=== PATIENT | male | born 1995 | race African-American/Black ===

== ENCOUNTER 2022-07-24 01:27 | Emergency (ER) | payer OTHER ==
[2022-07-24 01:46] VITALS: BP 104/69; PULSE 77; RESP 18; TEMP 98.2; BMI 23.3
[2022-07-24] MEDS ORDERED: KETOROLAC TROMETHAMINE 30 MG/1 ML VIAL IM ONE (02:15)
[2022-07-24] MEDS ORDERED: IBUPROFEN 400 MG TABLET (FP) PO ONE (02:17)
[2022-07-24] MEDS ORDERED: ACETAMINOPHEN 325 MG TABLET (FP) PO ONE (02:18)
[2022-07-24] MEDS ORDERED: IBUPROFEN 600 MG TABLET (FP) PO ONE (02:27)
[2022-07-24] MEDS ORDERED: ACETAMINOPHEN 325 MG TABLET (FP) ONE (02:28)
== END 2022-07-24 04:42 | disposition home or self-care (01) ==
LOC: JER 01:27
DX: M79.602 Pain in left arm (principal); V03.10XA Pedestrian on foot injured in collision with car, pick-up truck or van in traffic accident, initial encounter
CPT/HCPCS: 71046-TC-FY; 72170-TC-FY; 73030-TC-LT-FY; 99284-25